=== PATIENT | male | born 1985 | race Caucasian/White ===

== ENCOUNTER 2017-08-20 17:06 | Emergency (ER) | payer BC ==
[~2017-08-20] VITALS: Ht 188 cm; Wt 102.0 kg
[~2017-08-20 17:06] MED LIST: PERCOCET 5/31 TABLET PO; VENLAFAXINE HCL75 M3 PO
[2017-08-20 17:41] LABS: HEMATOCRIT 44.5 % (38.0-50.0); MCH 29.2 PG (29.0-34.0); MCHC 34.8 G/DL (30.0-36.0); MCV 83.8 FL (86-99); MEAN PLAT.VOLUME 10.2 uM^3 (9.0-12.4); PLATELET COUNT 276 K/uL (156-360); RBC DIS.WIDTH-CV 12.5 % (11.8-14.6); RBC DIS.WIDTH-SD 38.1 % (39-53); RED BLOOD COUNT 5.31 M/uL (4.00-5.50); WHITE BLOOD COUNT 9.2 K/uL (4.1-10.2)
[2017-08-20 17:49] LABS: CHLORIDE 104 mEq/L (99-109); POTASSIUM 3.1 mEq/L (3.7-5.4); SODIUM 139 mEq/L (136-147)
[2017-08-20 17:50] LABS: GLUCOSE 145 mg/dL (70-99)
[2017-08-20 17:52] LABS: ANION GAP 17 MEQ/L (2-14)
[2017-08-20 17:54] LABS: GFR ESTIMATE (CALCULATED) > 59 mL/min/ (58.99-99999)
[2017-08-20 17:55] LABS: UREA NITROGEN (BUN) 11 mg/dL (9-23)
[2017-08-20 19:59] LABS: ADD MIUA? YES; BILIRUBIN NEGATIVE; BLOOD LARGE; COLOR YELLOW ((YELLOW)); GLUCOSE (STRIP) NEGATIVE; KETONES 20; LEUKOCYTES TRACE; NITRITE NEGATIVE; PROTEIN (STRIP) 100; SPECIFIC GRAVITY 1.032 (1.000-1.030); UROBILINOGEN 0.2 MG/DL (0.2-1.0)
[2017-08-20] MEDS ORDERED: FLOMAX0.4 MG PO (20:27)
[2017-08-20] MEDS ORDERED: PERCOCET 5/31 TABLET PO (20:27)
[2017-08-20] MEDS ORDERED: ZOFRAN ODT4 MG PO (20:27)
[2017-08-20] MEDS ORDERED: MOTRIN800 MG PO (20:27)
[2017-08-20] MEDS ORDERED: STOOL SOFTENER250 MG PO (20:27)
[2017-08-20 20:54] LABS: RED BLOOD CELLS 20-30 /HPF (0-5); WHITE BLOOD CELLS 0-5 /HPF (0-5)
[2017-08-20 20:55] LABS: BACTERIA NONE SEEN /HPF; CASTS NONE SEEN /LPF; CRYSTALS NONE SEEN; EPITHELIAL CELLS NONE SEEN /HPF; MUCUS 3+ /LPF
[2017-08-20 21:48] VITALS: BP 138/85
== END 2017-08-20 21:54 | disposition home or self-care (01) ==
LOC: EME 17:06
PROVIDERS: Nurse Practitioner Family
DX: N13.2 Hydronephrosis with renal and ureteral calculous obstruction (principal); E87.6 Hypokalemia; Z87.442 Personal history of urinary calculi; Z87.891 Personal history of nicotine dependence
CPT/HCPCS: 74176; 80048; 81003; 85027; 99281; 99285; J1885; J2270; J2405; J3010